=== PATIENT | male | born 1965 | race Caucasian/White ===

== ENCOUNTER → 2019-05-01 13:43 | Outpatient (CLI) | payer OTHER, MEDICAID, SELFPAY ==
--- NOTE | 2019-05-01 | DI.US.S_ITS ---
PROCEDURE: US SOFT TISSUE HEAD AND NECK INDICATIONS: LOCALIZED SWELLING, MASS, LUMP OF NECK TECHNIQUE: Real-time scanning was performed of the neck region of interest, with image documentation. COMPARISON: None. FINDINGS: Isoechoic, solid posterior left neck mass corresponding to the palpable abnormality measuring 2.5 x 0.8 x 2.7 cm. IMPRESSION: Probable soft tissue lipoma; however findings are nonspecific and differential would include both benign and malignant etiology. If indicated, soft tissue MRI could be performed for further characterization. Dictated by: Guillermo JASSO Interpreted: Christophe Juan MD on 05/01/2019 at 15:32 Approved by: Christophe Juan M.D. on 05/01/2019 at 17:31
== END ==
PROVIDERS: Visit Provider Family Medicine
DX: R22.1 Localized swelling, mass and lump, neck (principal); R01.1 Cardiac murmur, unspecified
CPT/HCPCS: 76536

== ENCOUNTER → 2019-07-17 15:09 | Outpatient (CLI) | payer OTHER, MEDICAID, SELFPAY | PROVIDERS: Visit Provider Physician Assistant | DX: R22.1 Localized swelling, mass and lump, neck (principal); Z53.9 Procedure and treatment not carried out, unspecified reason ==

== ENCOUNTER → 2019-07-19 10:48 | Outpatient (CLI) | payer OTHER, MEDICAID, SELFPAY ==
--- NOTE | 2019-07-19 | DI.MRI.S_ITS ---
PROCEDURE: MR ORBITS FACE NECK WO/W CON INDICATIONS: Localized swelling, mass and lump, neck TECHNIQUE: Sagittal/axial/coronal T1 spin echo and STIR. After the administration of contrast, axial/coronal/sagittal T1 fast spin echo with fat saturation through the neck. COMPARISON: None. FINDINGS: Image quality: Excellent. Lymph nodes: No enlarged nodes are seen throughout the neck. Note is made of a small lymph node at the left posterior junction of the neck and supraclavicular fossa which is normal in size and measures up to 6 x 8 mm in maximal dimension. This is located near the superficial muscular fascia layer centered approximately 6.3 cm left of midline. A second subcutaneous structure is identified just below the dermis, measuring 7 mm in maximal dimension having an internal content appearance without enhancement most consistent with a sebaceous cyst rather than a lymph node. Vessels: Visualized vasculature appears normal, with chucho flow voids and enhancement. Neck spaces: The oropharynx, nasopharynx and pharynx are unremarkable, without mucosal lesions seen. Vocal cords, false vocal cords, pyriform sinuses, epiglottis, vallecula, and tongue base all appear normal. Extramucosal spaces of the neck also appear unremarkable. Glands: The parotid and submandibular glands appear normal. Thyroid gland appears normal where well seen. Miscellaneous: Visualized brain and orbits appear normal. Lung apices appear clear. Superficial soft tissues appear normal except for the small lymph node and sebaceous cyst discussed above. In the area of the patient's clinical concern at the mid neck level, dorsal midline, a MR surface marker was placed prior to scanning. At this area within the subcutaneous and underlying muscular and osseous structures no lesion is found.. Visualized sinuses and mastoids appear clear. Bones: Marrow has normal overall signal. IMPRESSION: 1. In the area of clinical concern, dorsal midline mid neck level identified by the patient, an MR surface marker was placed before scanning and no underlying lesion was found. 2. Incidentally noted within the dorsal aspect of the soft tissues of the junction of the lower neck and supraclavicular level of the upper chest there is a small (normal-sized) left-sided paramedian lymph node and on the right also within the soft tissues superficially there is a small sebaceous cyst. These measure approximately 6-8 mm in maximal dimension each. No followup recommended. 3. The soft tissues of the neck and visualized mucosal soft tissues and orbit regions no lesion is found. Visualized brain parenchyma appears normal. Dictated by: Bart Hill M.D. on 07/21/2019 at 10:46 Approved by: Bart Hill M.D. on 07/21/2019 at 10:57
== END ==
PROVIDERS: Visit Provider Physician Assistant
DX: R22.1 Localized swelling, mass and lump, neck (principal); L72.3 Sebaceous cyst
CPT/HCPCS: 70543; A9579

== ENCOUNTER → 2019-07-26 10:34 | Outpatient (CLI) | payer OTHER, MEDICAID, SELFPAY ==
--- NOTE | 2019-07-26 | DI.MRI.S_ITS ---
PROCEDURE: MR KNEE RT WO CON INDICATIONS: Unspecified internal derangement of right knee TECHNIQUE: Noncontrast sagittal PD fast spin echo and T2 fast spin echo with fat saturation, sagittal 3-D FLASH with fat saturation; coronal T1 spin echo and PD fast spin echo with fat saturation, and axial PD fast spin echo with fat saturation through the knee. COMPARISON: None. FINDINGS: Image quality: Excellent. Menisci: There is peripheral displacement of needle meniscus bowing medial collateral ligament. Complex tear involving body and posterior horn of medial meniscus is seen extending to both superior and inferior articulating surfaces. There is no evidence of focal lateral meniscal tear. The meniscal root ligaments appear intact. Cruciate ligaments: There is nonvisualization of normal anterior cruciate ligament suggestive of age indeterminate, likely subacute to chronic ACL rupture. The PCL is intact. Medial structures: The medial collateral ligament appears intact. The posterior oblique ligament, semimembranosus tendon insertions, oblique popliteal ligament, and meniscocapsular junction appear intact. Visualized portions of the pes anserinus tendons appear normal. No abnormal bursal fluid. Lateral structures: The lateral collateral ligament, long and short heads of the biceps femoris tendon appear intact. The popliteus tendon appears normal; the popliteofibular ligament appears intact. The posterosuperior and anteroinferior popliteomeniscal fascicles appear intact. The arcuate and fabellofibular ligaments appear intact, on either side of the lateral inferior geniculate artery. Iliotibial band appears normal. Anterior structures: The quadriceps and patellar tendons appear intact. Patellar alignment is normal. No femoral trochlear dysplasia or ventral trochlear prominence. No edema in the infrapatellar fat pad. Bones and cartilage: Moderate to severe medial femoral tibial compartment osteoarthritic changes are seen with near complete loss of joint space, extensive subchondral sclerosis and cyst formation and prominent marginal osteophyte formation. Joint space: There is small amount of joint fluid, no gross loose body No Freitas's cyst. Normal appearing synovial plicae are incidentally noted. IMPRESSION: 1. 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 PCL is intact. 2. 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 Articulating cartilages and lateral femoral tibial compartment and patellofemoral compartment are grossly intact. 3. Complex tear involving body and posterior horn of medial meniscus extending to both superior and inferior articulating surfaces. No focal lateral meniscal tear. Dictated by: Kit Green M.D. on 07/28/2019 at 8:50 Approved by: Kit Green M.D. on 07/28/2019 at 9:00
== END ==
PROVIDERS: PCP Family Medicine; Visit Provider Family Medicine
DX: S83.231A Complex tear of medial meniscus, current injury, right knee, initial encounter (principal); M17.11 Unilateral primary osteoarthritis, right knee; M94.261 Chondromalacia, right knee
CPT/HCPCS: 73721

== ENCOUNTER 2020-01-05 09:30 | Emergency (ER) | payer OTHER, MEDICAID, SELFPAY ==
[2020-01-05 09:40] VITALS: BP 137/90; PULSE 100; RESP 12; TEMP 36.1; O2SAT 99
--- NOTE | 2020-01-05 09:49 | ED.DENTAL ---
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 He denies any fever, difficulty swallowing or facial swelling. He spoke with his dental team who encouraged him to be seen in the emergency department to receive antibiotics given his cardiac history. They will see him in the upcoming days. Related Data Home Medications Medication Instructions Recorded Confirmed aspirin 81 mg tablet,delayed 81 mg PO DAILY 08/13/19 08/13/19 release atorvastatin 80 mg tablet 80 mg PO DAILY 08/13/19 08/13/19 furosemide 20 mg tablet 10 mg PO BID 08/13/19 08/13/19 losartan 25 mg tablet 25 mg PO DAILY 08/13/19 08/13/19 metoprolol succinate 100 mg 100 mg PO DAILY 08/13/19 08/13/19 capsule sprinkle, ext. release 24 hr nitroglycerin 0.4 mg sublingual 0.4 mg SL Q5M PRN 08/13/19 08/13/19 tablet spironolactone 25 mg tablet 25 mg PO DAILY 08/13/19 08/13/19 Previous Rx's Medication Instructions Recorded amoxicillin-pot clavulanate 1 tab PO BID #20 tab 01/05/20 [Augmentin] ketorolac 10 mg PO Q6H PRN #14 tab 01/05/20 Allergies Allergy/AdvReac Type Severity Reaction Status Date / Time No Known Drug Allergies Allergy Verified 08/13/19 13:05 Review of Systems Constitutional Constitutional: Denies chills, Denies fatigue, Denies fever(s), Denies frequent falls, Denies lethargy and Denies weakness Eyes Eyes: Denies change in vision, Denies eye discharge, Denies irritation and Denies loss of vision ENT Ears, Nose, Mouth, and Throat: Denies change in voice, Reports dental pain, Denies dizziness, Denies neck pain, Denies sore throat and Denies throat swelling Cardiovascular Cardiovascular: Denies chest pain, Denies irregular heart rhythm, Denies lightheadedness, Denies palpitations, Denies dyspnea, Denies dyspnea on exertion and Denies orthopnea Respiratory Respiratory: Denies cough, Denies dyspnea, Denies dyspnea on exertion and Denies wheezing Gastrointestinal Gastrointestinal: Denies abdominal pain, Denies change in bowel habits, Denies diarrhea, Denies nausea and Denies vomiting Genitourinary Genitourinary: Denies hematuria, Denies flank pain, Denies urinary incontinence and Denies urinary urgency Musculoskeletal Musculoskeletal: Denies back pain, Denies muscle weakness, Denies neck pain, Denies numbness and Denies tingling Integumentary/Breasts Skin/Breast: Denies pruritus, Denies erythema, Denies rash and Denies wounds Neurologic Neurologic: Denies behavioral changes, Denies confusion, Denies dizziness, Denies frequent falls, Denies loss of vision, Denies numbness, Denies tingling and Denies weakness Psychiatric Psychiatric: Denies anxiety, Denies behavioral changes, Denies confusion, Denies depression, Denies homicidal ideation and Denies suicidal ideation Endocrine Endocrine: Denies fatigue, Denies flushing and Denies palpitations Hematologic/Lymphatic Hematologic/Lymphatic: Denies easy bruising Allergic/Immunologic Allergic/Immunologic: Denies urticaria, Denies throat swelling and Denies wheezing Patient History Medical History Arthritis (Acute) Endocarditis (Acute) Substance abuse (Acute) Surgical History H/O aortic valve replacement (Acute) Social History Smoking Status: Former smoker Smoking Status: Former smoker Substance Use Type: does not use Exam Narrative Exam Narrative: GEN: AOx3 and in mild distress EYES: Pupils are equal, round, and reactive to light and accommodation. Extraoccular muscles are intact bilaterally. There is no subconjunctival hemorrhage or exudate. ENT: Poor dentition throughout with dental fracture on right lower premolar, Samuel to with mildly displaced amalgam. No evidence of intraoral abscess CHEST: Lungs are clear to auscultation bilaterally and free of wheezes, rales, or rhonchi. Heart rate is regular rhythm, there are no murmurs, clicks, rubs, or gallops. There is no chest wall tenderness. ABD: Abdomen is soft and nontender. There is no guarding or rebound. Bowel sounds are normal in all 4 quadrants. There is no mass or organomegaly. EXT: Full painless ROM of all extremities with no loss of sensation or strength. SKIN: Warm, pink, and dry. No erythema or rash Initial Vital Signs Initial Vital Signs: Vital Signs Temperature 96.9 F L 01/05/20 09:40 Pulse Rate 100 H 01/05/20 09:40 Respiratory Rate 12 01/05/20 09:40 Blood Pressure 137/90 01/05/20 09:40 Pulse Oximetry 99 01/05/20 09:40 Procedures Nerve Block Nerve Block 1: Time out performed: Yes Local Anesthetic: bupivacaine 0.25% Amount of anesthesia used (mL): 4 Side: right Intraoral Nerve Block: inferior alveolar Procedure Successful: Yes Patient Tolerated Procedure: Well Complications: none Course Orders Ordered: Discontinued Medications Bupivacaine HCl/Epinephrine Bitart (Sensorcaine 0.5% W/ Epi (Pf)) 5 ml SUBCUT NOW ONE Stop: 01/05/20 09:56 Vital Signs Vital signs: Vital Signs - 8 hr 01/05/20 09:40 Temperature 96.9 F L Pulse Rate 100 H Respiratory Rate 12 Blood Pressure 137/90 Pulse Oximetry 99 Discharge Plan Departure Patient Disposition: Home Clinical Impression: Dental caries, Toothache, Fracture of tooth Discharge Date/Time: 01/05/20 10:16 Instructions: DI for Dental Pain, Tooth Fracture Activity Restrictions/Additional Instructions: *You have been diagnosed with [dental pain from dental fracture] *What to do: *Take medications as directed *Follow up with your primary care provider in 2-3 days, call for an appointment. Let them know you were seen in the Emergency Department and that we ask that you be seen in follow up *Return to ER if you should have any new, worsening or concerning symptoms, such as [ ] Prescriptions: New amoxicillin-pot clavulanate [Augmentin] 875-125 mg tablet 1 tab PO BID Qty: 20 RF: 0 ketorolac 10 mg tablet 10 mg PO Q6H PRN (Reason: pain) Qty: 14 RF: 0 No Action furosemide 20 mg tablet 10 mg PO BID RF: 0 spironolactone 25 mg tablet 25 mg PO DAILY RF: 0 nitroglycerin 0.4 mg tablet, sublingual 0.4 mg SL Q5M PRNRF: 0 metoprolol succinate 100 mg capsule,sprinkle,ER 24hr 100 mg PO DAILY RF: 0 losartan 25 mg tablet 25 mg PO DAILY RF: 0 atorvastatin 80 mg tablet 80 mg PO DAILY RF: 0 aspirin 81 mg tablet,delayed release (DR/EC) 81 mg PO DAILY RF: 0 Referrals: Dwight Cruz [Primary Care Provider] -
== END 2020-01-05 10:16 | disposition home or self-care (01) ==
PROVIDERS: Emergency Provider Emergency Medicine; PCP Family Medicine
DX: S02.5XXA Fracture of tooth (traumatic), initial encounter for closed fracture (principal); K08.89 Other specified disorders of teeth and supporting structures
CPT/HCPCS: 64450; 99281; 99283

== ENCOUNTER → 2021-10-24 08:45 | Outpatient (CLI) | payer MEDICARE, MEDICAID, SELFPAY ==
[2021-10-24 19:10] LABS: Add Manual Diff / Slide Review NO; Basophils Absolute Auto 100 /uL (0-100); Basophils Percent Auto 0.5 % (0-2); Eosinophils Absolute Auto 100 /uL (0-450); Eosinophils Percent Auto 0.5 % (2-4); Hematocrit 44.5 % (41-53); Hemoglobin 15.6 g/dL (13.5-17.5); Lymphocytes Absolute Auto 1400 /uL (1100-4500); Lymphocytes Percent Auto 13.6 % (25-40); Mean Corpuscular Hemoglobin 31.6 PG (26-34); Mean Corpuscular Volume 90.5 fL (80-100); Monocytes Absolute Auto 900 /uL (0-900); Monocytes Percent Auto 8.3 % (3-14); Neutrophils Absolute Auto 8000 /uL (1500-7000); Neutrophils Percent Auto 77.1 % (50-75); Platelet Count 495 X10^3/uL (150-400); Red Blood Cell Count 4.92 X10^6/uL (4.5-5.9); Red Cell Distribution Width 14.2 % (11.6-14.8); White Blood Cell Count 10.4 X10^3/uL (4.5-11.0)
[2021-10-24 19:15] LABS: Alanine Aminotransferase 33 IU/L (<50); Albumin 4.7 g/dL (3.5-5.0); Albumin Globulin Ratio 1.7 (1.0-2.8); Alkaline Phosphatase 79 U/L (38-126); Aspartate Aminotransferase 35 IU/L (17-59); Bilirubin Total 0.6 mg/dL (0.2-1.3); Blood Urea Nitrogen 21 mg/dL (9-20); Calcium 10.7 mg/dL (8.4-10.2); Carbon Dioxide 26 mmol/L (22-32); Chloride 102 mmol/L (98-107); Estimated Glomerular Filt Rate > 60.0 mL/min (>60); Globulin 2.8 g/dL (1.7-4.1); Glucose 94 mg/dL (70-100); HEMOLYSIS 16 (0-50); Potassium 4.8 mmol/L (3.4-5.1); Sodium 136 mmol/L (137-145); Total Protein 7.5 g/dL (6.3-8.2)
[2021-10-24 19:16] LABS: NT-proBNP (BNP-Adult 18+) 2450 pg/mL (<125)
== END ==
PROVIDERS: PCP Family Medicine; Visit Provider Physician Assistant
DX: I10 Essential (primary) hypertension (principal); D50.0 Iron deficiency anemia secondary to blood loss (chronic); R10.13 Epigastric pain; K92.0 Hematemesis; I25.5 Ischemic cardiomyopathy; R05.9 Cough, unspecified
CPT/HCPCS: 71046; 80053; 81002; 83880; 85025

== ENCOUNTER → 2021-11-30 11:02 | Outpatient (CLI) | payer MEDICARE, MEDICAID, SELFPAY ==
[2021-11-30 18:52] LABS: NT-proBNP (BNP-Adult 18+) 1240 pg/mL (<125)
[2021-12-01 09:28] LABS: Appearance Urine UA Clear; Color Urine UA Yellow; Glucose Urine UA NEGATIVE (Negative); Ketones Urine UA NEGATIVE (NEGATIVE); Occult Blood Urine UA Negative (Negative); Protein Urine UA TRACE (Negative); Specific Gravity Urine UA 1.025 (1.000-1.035)
[2021-12-01 09:29] LABS: Bilirubin Urine UA Negative (NEGATIVE); Leukocyte Esterase Urine UA NEGATIVE (NEGATIVE); Nitrite Urine UA NEGATIVE (Negative); Urobilinogen Urine UA 0.2 E.U./dL (0.2)
== END ==
PROVIDERS: PCP Physician Assistant; Visit Provider Physician Assistant
DX: I42.0 Dilated cardiomyopathy (principal)
CPT/HCPCS: 81003; 83880

== ENCOUNTER → 2021-12-02 10:25 | Outpatient (CLI) | payer MEDICARE, MEDICAID, SELFPAY ==
[2021-12-06 15:51] LABS: Fecal Immunochemical Test Positive (Negative)
== END ==
PROVIDERS: PCP Physician Assistant; Visit Provider Physician Assistant
DX: D50.0 Iron deficiency anemia secondary to blood loss (chronic) (principal); I10 Essential (primary) hypertension; K92.0 Hematemesis; R10.13 Epigastric pain
CPT/HCPCS: 82274

== ENCOUNTER 2022-02-22 17:05 | Emergency (ER) | payer MEDICARE, MEDICAID, SELFPAY ==
[2022-02-22 17:13] VITALS: BP 115/55; PULSE 120; RESP 32; TEMP 36.6; O2SAT 99; BMI 30.8
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
[2022-02-22 18:41] VITALS: BP 109/81; PULSE 112; RESP 22; O2SAT 99
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
[2022-02-22 19:27] VITALS: O2SAT 98
[2022-02-22] MEDS: ALBUTEROL 2.5 MG/3 ML NEB (ADULT) INH (19:27)
[2022-02-22] MEDS: HYDROMORPHONE 1 MG INJ 0.5 MG IM (19:29)
[2022-02-22 19:32] LABS: Add Manual Diff / Slide Review NO; Basophils Absolute Auto 100 /uL (0-100); Basophils Percent Auto 0.5 % (0-2); Eosinophils Absolute Auto 100 /uL (0-450); Eosinophils Percent Auto 0.6 % (2-4); Hematocrit 40.5 % (41-53); Hemoglobin 14.1 g/dL (13.5-17.5); Lymphocytes Absolute Auto 1100 /uL (1100-4500); Lymphocytes Percent Auto 10.8 % (25-40); Mean Corpuscular HGB Conc 34.8 % (30-36); Mean Corpuscular Hemoglobin 32.1 PG (26-34); Mean Corpuscular Volume 92.5 fL (80-100); Monocytes Absolute Auto 800 /uL (0-900); Monocytes Percent Auto 7.9 % (3-14); Neutrophils Absolute Auto 8300 /uL (1500-7000); Neutrophils Percent Auto 80.2 % (50-75); Platelet Count 312 X10^3/uL (150-400); Red Blood Cell Count 4.38 X10^6/uL (4.5-5.9); Red Cell Distribution Width 16.2 % (11.6-14.8); White Blood Cell Count 10.3 X10^3/uL (4.5-11.0)
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
[2022-02-22 19:49] LABS: Alanine Aminotransferase 154 IU/L (<50); Albumin 3.9 g/dL (3.5-5.0); Albumin Globulin Ratio 1.4 (1.0-2.8); Alkaline Phosphatase 130 U/L (38-126); Aspartate Aminotransferase 116 IU/L (17-59); BUN Creatinine Ratio 15.9 (6-22); Bilirubin Total 1.5 mg/dL (0.2-1.3); Blood Urea Nitrogen 17 mg/dL (9-20); Calcium 9.1 mg/dL (8.4-10.2); Carbon Dioxide 28 mmol/L (22-32); Chloride 97 mmol/L (98-107); Creatine Kinase 44 U/L (55-170); Estimated Glomerular Filt Rate > 60 mL/min (>60); Globulin 2.8 g/dL (1.7-4.1); Glucose 92 mg/dL (70-100); HEMOLYSIS 17 (0-50); Magnesium 1.6 mg/dL (1.6-2.3); Potassium 4.1 mmol/L (3.4-5.1); Sodium 131 mmol/L (137-145); Total Protein 6.7 g/dL (6.3-8.2)
[2022-02-22 19:57] LABS: NT-proBNP (BNP-Adult 18+) 2180 pg/mL (<125)
[2022-02-22 20:00] LABS: Troponin I 0.032 ng/mL (0.01-0.034)
--- NOTE | 2022-02-22 20:11 | DI.CT.S_ITS ---
PROCEDURE: CT CHEST ABD PEL W CON INDICATIONS: trauma, rt rib fracture TECHNIQUE: After the administration of intravenous contrast, axial sections acquired from the supraclavicular neck to the pubic symphysis. Coronal and sagittal reformats were performed. For radiation dose reduction, the following was used: automated exposure control, adjustment of mA and/or kV according to patient size. COMPARISON:[facility], CR, XR RIBS RT MIN 3V W CXR 1V, 02/22/2022, 17:29. FINDINGS: Image quality: Excellent. CHEST: Lower Neck: No lymphadenopathy by size criteria. Thyroid: Visualized thyroid demonstrates no discrete nodules. Axillae: No lymphadenopathy by size criteria. Chest Wall: Unremarkable. Bones: There is a mildly displaced fracture of the right posterolateral 7th rib. Lungs and Airways: No pulmonary contusions or lacerations. No acute consolidation. There is mild dependent atelectasis bilaterally. The trachea and central airways are patent. Pleura: There is a small loculated hematoma in the right chest wall associated with a rib fracture. No definite pleural effusion. No pneumothorax. Heart: Heart size is normal. No pericardial effusion. There is a prosthetic aortic valve Thoracic Vessels: The aorta and pulmonary arteries are normal in size. Mediastinum and Alexandra: No lymphadenopathy by size criteria. No definite mediastinal hematomas. Esophagus: No wall thickening. No hiatal hernia. ABDOMEN: Liver: No hepatic lacerations or perihepatic fluid collections. There is hypoattenuation of the liver consistent with fatty infiltration. Gallbladder: Within normal limits without calcified gallstones. Biliary ducts: No biliary ductal dilatation. Pancreas: Unremarkable. Spleen: Normal in size. No splenic lacerations or perisplenic fluid collections. Adrenal Glands: No adrenal nodules. Kidneys and Ureters: No hydronephrosis. Stomach and Bowel: Stomach, small bowel loops, and colon are normal in caliber and wall thickness. Peritoneum: No abnormal intraperitoneal fluid. No free air. Ventral Wall: No hernia. Abdominal Nodes: No retroperitoneal or mesenteric adenopathy by size criteria. Vessels: Aorta and inferior vena cava are normal in size. PELVIS: Pelvic Organs: Unremarkable. Bladder: There is mild bladder wall thickening with minimal fat stranding. Pelvic Nodes: No enlarged lymph nodes. Miscellaneous: No inguinal hernias are seen. Bones: No acute fractures identified. Visualized osseous structures demonstrate no suspicious focal lesions. IMPRESSION: 1. Mildly displaced fracture of the right posterolateral 7th rib. There is an associated small loculated hematoma. 2. No evidence of pneumothorax 3. Elsewhere, no other acute traumatic abnormality identified in the chest, abdomen, or pelvis. Dictated by: Gabriel Gill M.D. on 02/22/2022 at 21:39 Approved by: Gabriel Gill M.D. on 02/22/2022 at 21:46
[2022-02-22] MEDS: ALBUTEROL HFA PREPACK 1 BOX MISC (20:49)
[2022-02-22] MEDS: OXYCODONE/APAP 5/325 PREPACK 1 BOTTLE MISC (21:00)
[2022-02-22 22:51] VITALS: PULSE 108; RESP 20; O2SAT 97
[2022-02-22] MEDS: ONDANSETRON 4 MG ODT PREPACK 1 BOTTLE MISC (22:56)
== END 2022-02-22 22:57 | disposition home or self-care (01) ==
PROVIDERS: Nurse Practitioner Critical Care Medicine; Emergency Provider Emergency Medicine; PCP Physician Assistant
DX: S22.31XA Fracture of one rib, right side, initial encounter for closed fracture (principal); R06.2 Wheezing; E87.1 Hypo-osmolality and hyponatremia; V29.9XXA Motorcycle rider (driver) (passenger) injured in unspecified traffic accident, initial encounter; R17 Unspecified jaundice; Z95.5 Presence of coronary angioplasty implant and graft
CPT/HCPCS: 36415; 71101; 71260; 74177; 80053; 82550; 83735; 83880; 84484; 85025; 93005; 93010; 94640; 96372; 99283; 99284; J1170; J7613; Q9967

== ENCOUNTER → 2022-10-25 08:44 | Outpatient (CLI) | payer MEDICARE, MEDICAID, SELFPAY ==
[2022-10-25 19:20] LABS: Add Manual Diff / Slide Review NO; Basophils Absolute Auto 0 /uL (0-100); Basophils Percent Auto 0.6 % (0-2); Eosinophils Absolute Auto 100 /uL (0-450); Eosinophils Percent Auto 1.3 % (2-4); Hematocrit 46.8 % (41-53); Hemoglobin 15.5 g/dL (13.5-17.5); Lymphocytes Absolute Auto 1700 /uL (1100-4500); Lymphocytes Percent Auto 23.3 % (25-40); Mean Corpuscular HGB Conc 33.1 % (30-36); Mean Corpuscular Hemoglobin 27.5 PG (26-34); Mean Corpuscular Volume 82.9 fL (80-100); Monocytes Absolute Auto 800 /uL (0-900); Monocytes Percent Auto 10.9 % (3-14); Neutrophils Absolute Auto 4800 /uL (1500-7000); Neutrophils Percent Auto 63.9 % (50-75); Platelet Count 298 X10^3/uL (150-400); Red Blood Cell Count 5.65 X10^6/uL (4.5-5.9); Red Cell Distribution Width 16.7 % (11.6-14.8); White Blood Cell Count 7.4 X10^3/uL (4.5-11.0)
[2022-10-25 19:22] LABS: Alanine Aminotransferase 26 IU/L (<50); Albumin 4.4 g/dL (3.5-5.0); Albumin Globulin Ratio 1.6 (1.0-2.8); Alkaline Phosphatase 70 U/L (38-126); Aspartate Aminotransferase 30 IU/L (17-59); BUN Creatinine Ratio 21.6 (6-22); Bilirubin Total 0.3 mg/dL (0.2-1.3); Blood Urea Nitrogen 16 mg/dL (9-20); Calcium 9.3 mg/dL (8.4-10.2); Carbon Dioxide 28 mmol/L (22-32); Chloride 100 mmol/L (98-107); Cholesterol 171 mg/dL (140-199); Estimated Glomerular Filt Rate > 60 mL/min (>60); Globulin 2.8 g/dL (1.7-4.1); Glucose 95 mg/dL (70-100); HDL Cholesterol 58 mg/dL (40-60); HEMOLYSIS < 15 (0-50); LDL Cholesterol Calculated 94 mg/dL (<100); Potassium 4.1 mmol/L (3.4-5.1); Sodium 135 mmol/L (137-145); Total Protein 7.2 g/dL (6.3-8.2); Triglycerides 96 mg/dL (35-150)
[2022-10-25 19:56] LABS: Prostate Specific Antigen Scrn 0.748 ng/mL (0.1-4.0)
== END ==
PROVIDERS: PCP Physician Assistant; Visit Provider Physician Assistant
DX: I50.20 Unspecified systolic (congestive) heart failure (principal); M79.89 Other specified soft tissue disorders; Z12.5 Encounter for screening for malignant neoplasm of prostate; I10 Essential (primary) hypertension; Z79.899 Other long term (current) drug therapy
CPT/HCPCS: 80053; 80061; 85025; G0103